=== PATIENT | female | born 1990 | race Caucasian/White ===

== ENCOUNTER 2022-08-19 09:14 | Outpatient (CLI) | payer OTHER ==
--- NOTE | 2022-08-19 11:54 | XRAY Report ---
PROCEDURE: Knee 3 View RT INDICATIONS: PAIN IN RIGHT KNEE TECHNIQUE: 3 views of the right knee(s) were acquired. COMPARISON: None. FINDINGS: Bones: No fractures or dislocations. Mild medial compartment narrowing. Nonspecific lucent lesion/r egion medial posterior tibial metaphysis, with sclerotic border/narrow zone of transition. Soft tissues: Small joint effusion. No suspicious soft tissue calcifications. IMPRESSION: 1. No acute fracture or dislocation identified. A nonspecific joint effusion is present. 2. Minimal/mild degenerative changes of the knee. 3. Nonspecific bone lesion at the proximal tibial metaphysis, no definite aggressive features identif ied. This could potentially represent a nonossifying fibroma, other etiologies not excluded. Could co nsider imaging follow-up to ensure stability with initial interval of 3-6 months or other interval at clinical discretion. Reviewed by: Thiago Lopez MD on 08/19/2022 11:53 AM PDT Approved by: Thiago Lopez MD on 08/19/2022 11:53 AM PDT Station ID: [id number]
== END 2022-08-19 09:15 | disposition home or self-care (01) ==
LOC: DI 09:14
PROVIDERS: ATTEND Registered Nurse
DX: M25.461 Effusion, right knee (principal); M17.11 Unilateral primary osteoarthritis, right knee

== ENCOUNTER 2022-08-24 06:56 | Outpatient (CLI) | payer OTHER ==
--- NOTE | 2022-08-27 09:34 | MRI Report ---
PROCEDURE: KNEE WO - RT INDICATIONS: KNEE JOINT INSTABILITY TECHNIQUE: Noncontrast sagittal PD fast spin echo and T2 fast spin echo with fat saturation, sagittal 3-D gradie nt sequence with fat saturation; coronal T1 spin echo and PD fast spin echo with fat saturation, and axial PD fast spin echo with fat saturation through the knee. COMPARISON: X-ray right knee, 08/19/2022. FINDINGS: Image quality: Excellent. Menisci: There is a small oblique tear in the peripheral aspect of the posterior horn of the medial m eniscus (6 image 24). The lateral meniscus demonstrates normal morphology and internal signal. The m eniscal root ligaments appear intact. Cruciate ligaments: The anterior cruciate ligament is torn with associated edema. The posterior cruc iate ligament is intact. Medial structures: There is grade 1 sprain of the medial collateral ligament. There is mild sprain of semimembranosus tendon insertions. The meniscocapsular junction appear intact. Visualized portions of the pes anserinus tendons appear normal. No abnormal bursal fluid. Lateral structures: There is partial tear of the lateral collateral ligament. The biceps femoris tend on is intact. The popliteus tendon appears normal; the popliteofibular ligament appears intact. The posterosuperior and anteroinferior popliteomeniscal fascicles appear intact. The arcuate and fabell ofibular ligaments appear intact, around the lateral inferior geniculate artery. Iliotibial band maribel ears normal. Anterior structures: The quadriceps and patellar tendons appear intact. Patellar alignment is dianna l. No femoral trochlear dysplasia or ventral trochlear prominence. No edema in the infrapatellar fa t pad. Bones and cartilage: There are bone contusions with bone marrow edema in the medial femoral condyle, and both medial and lateral tibial plateaus. . There is fibrous cortical defect or nonossifying fibr sunny in the medial aspect of the proximal tibial metaphysis. The cartilage of the medial and lateral femorotibial compartments, as well as the patellofemoral compartment, appears normal in thickness. Mi ld signal inhomogeneity of the articular cartilage is preserved cartilage thickness. Joint space: There is arch knee joint effusion. No Santillan's cyst. Normal appearing synovial plicae are incidentally noted. IMPRESSION: 1. ACL tear. 2. Small tear of the posterior horn of the medial meniscus. 3. Partial tear of LCL. 4. Mild sprain of MCL and semimembranosus tendon insertions. 5. Bone contusions of the medial femoral condyle, as well as both medial and lateral tibial plateaus. 6. Large knee joint effusion. 7. 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
== END 2022-08-24 06:57 | disposition home or self-care (01) ==
LOC: DI 06:56
PROVIDERS: ATTEND Registered Nurse
DX: S83.511A Sprain of anterior cruciate ligament of right knee, initial encounter (principal); S83.241A Other tear of medial meniscus, current injury, right knee, initial encounter; S83.421A Sprain of lateral collateral ligament of right knee, initial encounter; S83.411A Sprain of medial collateral ligament of right knee, initial encounter; M25.461 Effusion, right knee; S70.11XA Contusion of right thigh, initial encounter

== ENCOUNTER 2022-09-09 13:37 | Outpatient (CLI) | payer OTHER ==
--- NOTE | 2022-09-09 15:34 | XRAY Report ---
PROCEDURE: Knee 2 View RT INDICATIONS: RIGHT KNEE PAIN, BILAT AP RIGHT TUNNEL ONLY TO COMPLETE XRAYS TECHNIQUE: 2 views of the right knee(s) were acquired. COMPARISON: 08/19/2022. MRI dated 08/24/2022 FINDINGS: Bones: No fractures or dislocations. No suspicious bony lesions. Minimal medial femorotibial comp artment joint space narrowing. Stable appearance of mild medial proximal tibial metaphyseal lucency w ith peripheral sclerosis which on MRI evaluation likely represented a fibrous cortical defect or nono ssifying fibroma. Soft tissues: No suspicious soft tissue calcifications or masses. IMPRESSION: Right knee without acute fracture. Minimal medial femorotibial compartment joint space narrowing. Reviewed by: Gian Chan MD on 09/09/2022 3:32 PM PDT Approved by: Gian Chan MD on 09/09/2022 3:32 PM PDT Station ID: [id number]
== END 2022-09-09 13:38 | disposition home or self-care (01) ==
LOC: DI.WOS 13:37
PROVIDERS: ATTEND Orthopaedic Surgery
DX: M25.361 Other instability, right knee (principal); M17.11 Unilateral primary osteoarthritis, right knee